=== PATIENT | male | born 1990 | race Hispanic/Latino ===

== ENCOUNTER 2017-11-29 10:25 | Emergency (ER) | payer BC ==
[2017-11-29] MEDS ORDERED: ORPHENADRINE CITRATE 30 MG/ML ML ONE (11:03)
[2017-11-29] MEDS ORDERED: KETOROLAC TROMETHAMINE 60 MG/2 ML VIAL ONE (11:03)
== END 2017-11-29 11:28 | disposition home or self-care (01) ==
LOC: EDH 10:25
DX: S39.012A Strain of muscle, fascia and tendon of lower back, initial encounter (principal); S13.9XXA Sprain of joints and ligaments of unspecified parts of neck, initial encounter; V53.5XXA Driver of pick-up truck or van injured in collision with car, pick-up truck or van in traffic accident, initial encounter; Y93.89 Activity, other specified; Y92.89 Other specified places as the place of occurrence of the external cause; Y99.8 Other external cause status
CPT/HCPCS: 72040; 72100; 96372 ×2; 99284; J1885; J2360